=== PATIENT | male | born 1965 | race Caucasian/White ===

== ENCOUNTER 2016-12-31 20:22 | Observation (INO) | payer BC ==
[~2016-12-31] VITALS: Ht 182.9 cm; Wt 68.9 kg
[~2016-12-31 20:22] MED LIST: DICL-201 PO
[2016-12-31] MEDS ORDERED: SODIUM CHLORIDE 0.9% 1000ML 1,000 ML IV STA (20:24)
[2016-12-31] MEDS ORDERED: METHYLPREDNISOLONE 125 MG VIAL IV STA (20:36)
[2016-12-31] MEDS ORDERED: ASPI-390 PO (20:45)
[2016-12-31] MEDS ORDERED: TRAM-10 PO (20:45)
[2016-12-31] MEDS ORDERED: PANT1TAB48 PO (20:45)
--- NOTE | 2016-12-31 20:48 | DIAGNOSTIC IMAGING REPORT ---
SINGLE VIEW CHEST CLINICAL HISTORY: Fever. Sepsis. FINDINGS: An AP, portable, upright chest radiograph is compared to study dated 08/21/2015. Correlation is made with chest CT dated 01/18/2010. The examination is degraded by portable technique and patient rotation. The cardiomediastinal silhouette is unremarkable. The lungs appear hyperinflated, likely due to to good inspiratory result. The lungs and pleural spaces are clear. No pneumothorax is seen. The bony thorax is grossly intact. IMPRESSION: No acute cardiopulmonary abnormality. Electronically signed by: Erich Lazaro M.D. 12/31/2016 8:47 PM Dictated Date/Time: 12/31/2016 8:46 PM
[2016-12-31 21:04] LABS: BASO % 0.2 %; BASO ABS # 0.01 K/uL (0-0.2); COMPLETE YES; EOS % 0.2 %; HEMATOCRIT 43.9 % (42-52); IG% 0.2 %; LYMPH % 11.2 %; LYMPH ABS # 0.62 K/uL (1.2-3.4); MEAN CELL VOLUME 83.5 fL (80-100); MEAN CORPUSCULAR HEMOGLOBIN 29.8 pg (25-34); MEAN CORPUSCULAR HGB CONC 35.8 g/dl (32-36); MEAN PLATELET VOLUME 10.2 fL (7.4-10.4); MONO % 3.6 %; NEUT % 84.6 %; PLATELET COUNT 153 K/uL (130-400); RED BLOOD COUNT 5.26 M/uL (4.7-6.1); WHITE BLOOD COUNT 5.55 K/uL (4.8-10.8)
[2016-12-31 21:08] LABS: ALT/SGPT 42 U/L (12-78); BLOOD UREA NITROGEN 22 mg/dl (7-18); BUN/CREATININE RATIO 18.4 (10-20); CALCIUM 8.6 mg/dl (8.5-10.1); CARBON DIOXIDE 24 mmol/L (21-32); CHLORIDE 105 mmol/L (98-107); GLUCOSE 97 mg/dl (70-99); MAGNESIUM 2.3 mg/dl (1.8-2.4); SODIUM 139 mmol/L (136-145)
[2016-12-31 21:17] LABS: ALKALINE PHOSPHATASE 102 U/L (45-117); AST/SGOT 43 U/L (15-37); CKMB/CK RATIO 0.5 (0-3.0)
[2016-12-31 21:20] LABS: VEN BLD GAS O2 SATURATION 62.9 %
--- NOTE | 2016-12-31 21:23 | DIAGNOSTIC IMAGING REPORT ---
CT SCAN OF THE BRAIN WITHOUT IV CONTRAST CLINICAL HISTORY: Change in mental status. COMPARISON STUDY: CT of the brain dated 06/24/2007. TECHNIQUE: Unenhanced axial CT scan of the brain is performed from the vertex to the skull base. Automated dose control exposure was utilized. CT DOSE: 537.48 mGy.cm FINDINGS: Brain parenchyma: The brain parenchyma is normal in appearance. There is no hemorrhage, mass effect, or evidence of acute territorial ischemia by CT criteria. Pruett-white matter is preserved. No extra-axial fluid collection is seen. Ventricles, sulci, cisterns: Normal in configuration. Intracranial vasculature: The visualized intracranial vasculature at the skull base is normal in appearance. Calvarium: Unremarkable. Sinuses and mastoids: There is trace mucosal thickening within the ethmoid sinuses. The remaining visualized paranasal sinuses are clear. The mastoid air cells are well pneumatized. Orbits: The bony orbits are grossly intact. IMPRESSION: No acute intracranial abnormality. Electronically signed by: Erich Lazaro M.D. 12/31/2016 9:22 PM Dictated Date/Time: 12/31/2016 9:20 PM
[2016-12-31 21:26] LABS: PARTIAL THROMBOPLASTIN RATIO 1.2
[2016-12-31] MEDS ORDERED: ACETAMINOPHEN 500 MG TAB PO STA (21:53)
[2016-12-31 22:54] LABS: INFLUENZA B PCR Neg for Influ B (NEG)
[2016-12-31 22:55] LABS: INFLUENZA A PCR POS for Influ A (NEG)
[2016-12-31 23:23] LABS: MANUAL MICROSCOPIC REQUIRED? YES; URINE APPEARANCE CLEAR (CLEAR); URINE BILIRUBIN NEG (NEG); URINE COLOR YELLOW; URINE NITRITE NEG (NEG); URINE PH 5.5 (4.5-7.5); URINE SPECIFIC GRAVITY >= 1.030 (1.000-1.030); UROBILINOGEN NEG (NEG)
[2016-12-31 23:25] LABS: REVIEW REQ? NO
--- NOTE | 2016-12-31 23:34 | EMERGENCY ROOM VISIT NOTE ---
History Report prepared by Gigi: Mine Montelongo Under the Supervision of: Dr. Tyron Mcqueen D.O. First contact with patient: 20:18 Stated Complaint: UNRESPONESIVE, SILO RESCUE History of Present Illness The patient is a 51 year old male who presents to the Emergency Room via EMS to be evaluated after being found unresponsive in a silo 2.5 hours ago. The patient told EMS that he entered the silo around 1300 to clean out the silo, removing mold. The silo was almost filled. EMS was dispatched at 1753 after the patient's brother found the patient unresponsive and the patient was removed from the silo at 1948. Per EMS, the patient was coughing as they were getting him out of the silo and was then responsive. EMS went into the silo with gas measuring equipment and did not measure any unusual gases. Three days ago the patient had flu-like symptoms. Today, in the silo, he states he felt dizzy and passed out. The patient denies falling, hitting his head, that the silo was filled with unusual gases. Additionally, the patient has a history of COPD. Source of History: patient Onset: 2.5 hours ago Position: other (global) Quality: other (unresponsiveness) Timing: other (episode) Associated Symptoms: + LOC, + cough Note: Three days ago the patient had flu-like symptoms. Today, in the silo, he states he felt dizzy. The patient denies falling, hitting his head. Review of Systems See HPI for pertinent positives & negatives. A total of 10 systems reviewed and were otherwise negative. Past Medical & Surgical Medical Problems: (1) Disloc Acromioclavic-Cl (2) Inj Nos Caused By Animal (3) No Known Active Medical Problems Family History Diabetes mellitus Heart disease Lung disease Social History Smoking Status: Never Smoker Alcohol Use: none Marital Status: Housing Status: lives with family Occupation Status: employed Current/Historical Medications Scheduled [place] (Excedrin Migraine), 1 TAB PO UD Scheduled PRN Pantoprazole (Protonix), 1 TAB PO DAILY PRN for PRN Tramadol (Ultram), 1 TAB PO Q8H PRN for Pain Allergies Coded Allergies: Penicillins (Unverified Allergy, Mild, 12/31/16) Physical Exam Vital Signs Date Time Temp Pulse Resp B/P Pulse Ox O2 Delivery O2 Flow Rate FiO2 12/31/16 23:09 66 18 123/61 96 Room Air 12/31/16 21:49 87 22 138/72 98 Room Air 12/31/16 20:55 84 12/31/16 20:22 97 Room Air 12/31/16 20:22 37.7 88 17 160/80 97 Room Air Physical Exam CONSTITUTIONAL/VITAL SIGNS: Reviewed / noted above. GENERAL: Non-toxic in appearance. INTEGUMENTARY: Warm, dry, and [place]. HEAD: Normocephalic. EYES: without scleral icterus or trauma. ENT/OROPHARYNX: clear and moist. LYMPHADENOPATHY/NECK: Is supple without lymphadenopathy or meningismus. RESPIRATORY: Slightly diminished breath sounds bilaterally and occasional dry cough. CARDIOVASCULAR: Regular rate and rhythm. GI/ABDOMEN: Soft and nontender. No organomegaly or pulsatile mass. No rebound or guarding. Normal bowel sounds. EXTREMITIES: Warm and well perfused. BACK: No CVA tenderness. NEUROLOGICAL: Intact without focal deficits. PSYCHIATRIC: normal affect. MUSCULOSKELETAL: Normally developed with good muscle tone. Medical Decision & Procedures ER Provider Diagnostic Interpretation: X ray results and stated below per my interpretation and radiologist interpretation. Other radiology results and stated below per my review and radiologist interpretation: SINGLE VIEW CHEST CLINICAL HISTORY: Fever. Sepsis. FINDINGS: An AP, portable, upright chest radiograph is compared to study dated 08/21/2015. Correlation is made with chest CT dated 01/18/2010. The examination is degraded by portable technique and patient rotation. The cardiomediastinal silhouette is unremarkable. The lungs appear hyperinflated, likely due to to good inspiratory result. The lungs and pleural spaces are clear. No pneumothorax is seen. The bony thorax is grossly intact. IMPRESSION: No acute cardiopulmonary abnormality. Electronically signed by: Erich Lazaro M.D. 12/31/2016 8:47 PM Dictated Date/Time: 12/31/2016 8:[address] SCAN OF THE BRAIN WITHOUT IV CONTRAST CLINICAL HISTORY: Change in mental status. COMPARISON STUDY: CT of the brain dated 06/24/2007. TECHNIQUE: Unenhanced axial CT scan of the brain is performed from the vertex to the skull base. Automated dose control exposure was utilized. CT DOSE: 537.48 mGy.cm FINDINGS: Brain parenchyma: The brain parenchyma is normal in appearance. There is no hemorrhage, mass effect, or evidence of acute territorial ischemia by CT criteria. Pruett-white matter is preserved. No extra-axial fluid collection is seen. Ventricles, sulci, cisterns: Normal in configuration. Intracranial vasculature: The visualized intracranial vasculature at the skull base is normal in appearance. Calvarium: Unremarkable. Sinuses and mastoids: There is trace mucosal thickening within the ethmoid sinuses. The remaining visualized paranasal sinuses are clear. The mastoid air cells are well pneumatized. Orbits: The bony orbits are grossly intact. IMPRESSION: No acute intracranial abnormality. Electronically signed by: Erich Lazaro M.D. 12/31/2016 9:22 PM Dictated Date/Time: 12/31/2016 9:20 PM Laboratory Results 12/31/16 20:22 Red Blood Count 5.26, Mean Corpuscular Volume 83.5, Mean Corpuscular Hemoglobin 29.8, Mean Corpuscular Hemoglobin Concent 35.8, Mean Platelet Volume 10.2, Neutrophils (%) (Auto) 84.6, Lymphocytes (%) (Auto) 11.2, Monocytes (%) (Auto) 3.6, Eosinophils (%) (Auto) 0.2, Basophils (%) (Auto) 0.2, Neutrophils # (Auto) 4.70, Lymphocytes # (Auto) 0.62, Monocytes # (Auto) 0.20, Eosinophils # (Auto) 0.01, Basophils # (Auto) 0.01 12/31/16 20:22 Test 12/31/16 20:22 12/31/16 20:53 12/31/16 21:15 12/31/16 23:05 White Blood Count 5.55 K/uL (4.8-10.8) Red Blood Count 5.26 M/uL (4.7-6.1) Hemoglobin 15.7 g/dL (14.0-18.0) Hematocrit 43.9 % (42-52) Mean Corpuscular Volume 83.5 fL (80-100) Mean Corpuscular Hemoglobin 29.8 pg (25-34) Mean Corpuscular Hemoglobin Concent 35.8 g/dl (32-36) Platelet Count 153 K/uL (130-400) Mean Platelet Volume 10.2 fL (7.4-10.4) Neutrophils (%) (Auto) 84.6 % Lymphocytes (%) (Auto) 11.2 % Monocytes (%) (Auto) 3.6 % Eosinophils (%) (Auto) 0.2 % Basophils (%) (Auto) 0.2 % Neutrophils # (Auto) 4.70 K/uL (1.4-6.5) Lymphocytes # (Auto) 0.62 K/uL (1.2-3.4) Monocytes # (Auto) 0.20 K/uL (0.11-0.59) Eosinophils # (Auto) 0.01 K/uL (0-0.5) Basophils # (Auto) 0.01 K/uL (0-0.2) RDW Standard Deviation 37.2 fL (36.4-46.3) RDW Coefficient of Variation 12.3 % (11.5-14.5) Immature Granulocyte % (Auto) 0.2 % Immature Granulocyte # (Auto) 0.01 K/uL (0.00-0.02) Prothrombin Time 11.0 SECONDS (9.0-12.0) Activated Partial Thromboplast Time 30.8 SECONDS (21.0-31.0) Partial Thromboplastin Ratio 1.2 Anion Gap 10.0 mmol/L (3-11) Est Creatinine Clear Calc Drug Dose 73.7 ml/min Estimated GFR () 81.8 Estimated GFR (Non- 70.6 BUN/Creatinine Ratio 18.4 (10-20) Calcium Level 8.6 mg/dl (8.5-10.1) Magnesium Level 2.3 mg/dl (1.8-2.4) Total Bilirubin 0.5 mg/dl (0.2-1) Direct Bilirubin 0.1 mg/dl (0-0.2) Aspartate Amino Transf (AST/SGOT) 43 U/L (15-37) Alanine Aminotransferase (ALT/SGPT) 42 U/L (12-78) Alkaline Phosphatase 102 U/L (45-117) Total Creatine Kinase 328 U/L (39-308) Creatine Kinase MB 1.8 ng/ml (0.5-3.6) Creatine Kinase MB Ratio 0.5 (0-3.0) Troponin I < 0.015 ng/ml (0-0.045) Total Protein 7.7 gm/dl (6.4-8.2) Albumin 4.0 gm/dl (3.4-5.0) Lipase 137 U/L (73-393) Thyroid Stimulating Hormone (TSH) 1.830 uIu/ml (0.300-4.500) Acetaminophen Level < 2 ug/ml (10-30) Venous Blood pH 7.42 (7.36-7.41) Venous Blood Partial Pressure CO2 40 mmHg (38.0-50.0) Venous Blood Partial Pressure O2 33 mmHg Venous Blood HCO3 25 mmol/L Venous Blood Oxygen Saturation 62.9 % Venous Blood Base Excess 1.0 mmol/L Carboxyhemoglobin 0.0 % THgb Lactic Acid Level 1.1 mmol/L (0.4-2.0) Ethyl Alcohol mg/dL < 3.0 mg/dl (0-3) Influenza Type A (RT-PCR) POS for Influ A (NEG) Influenza Type B (RT-PCR) Neg for Influ B (NEG) Urine Color YELLOW Urine Appearance CLEAR (CLEAR) Urine pH 5.5 (4.5-7.5) Urine Specific [place] >= 1.030 (1.000-1.030) Urine Protein TRACE (NEG) Urine Glucose (UA) NEG (NEG) Urine Ketones 1+ (NEG) Urine Occult Blood TRACE (NEG) Urine Nitrite NEG (NEG) Urine Bilirubin NEG (NEG) Urine Urobilinogen NEG (NEG) Urine Leukocyte Esterase NEG (NEG) Laboratory results as stated above per my review. Medications Administered Medications (Trade) Dose Ordered Sig/Geraldine Route Start Time Stop Time Status Last Admin Dose Admin Sodium Chloride (Nss 1000ml) 1,000 ml @ 999 mls/hr Q1H1M STAT IV 12/31/16 20:24 12/31/16 21:24 DC 12/31/16 21:04 999 MLS/HR Methylprednisolone Sodium Succinate (Solu-Medrol IV) 125 mg NOW STAT IV 12/31/16 20:36 12/31/16 20:39 DC 12/31/16 21:04 125 MG Acetaminophen (Tylenol Tab) 1,000 mg NOW STAT PO 12/31/16 21:53 12/31/16 21:54 DC 12/31/16 22:02 1,000 MG ECG Indication: syncope Rate (beats per minute): 82 Rhythm: normal sinus Findings: T-wave inversion (Lateral), no ectopy Comparison ECG Date: 01/17/2013 Change: Lateral T wave inversions are new when compared to previous. ED Course 2026: Previous medical records were reviewed. The patient was evaluated in room B7. A complete history and physical examination was performed. 2023: Sodium Chloride 1000 ml @ 999 mls/hr IV 2035: Solu-Medrol 125 mg IV 2152: Tylenol Tab 1000 mg PO 2312: I discussed the case with Dr. Carlson ([facility]); she will further evaluate the patient. Medical Decision The patient is a 51 year old male who presents to the ED to be evaluated after being found unresponsive in a silo. 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 He states that he went up to around 1:30 today. He did not come home and was found by family unresponsive on the top of the silage. This was almost completely full. The patient states that he has had some flulike symptoms since Monday. He has had some coughing spells. EMS states the patient had some expiratory wheezing on initial exam. He did receive a DuoNeb treatment in route here. His lungs on my exam were relatively clear. Patient does have a nonproductive cough on exam. He is in no acute distress. EMS reports that the [employer] checked for toxic gases and the silo but none were found. The patient has no additional complaints at this time. Alcohol level is negative. Tylenol levels negative. A VBG was normal. CBC is normal. TSH was normal. Complete metabolic panel was normal other than the BUN of 22. Lactic acid was normal. Total CK was 328. Troponin is negative. A chest x-ray was negative for acute disease. A CT scan the brain was negative for acute disease. An EKG shows a sinus rhythm at a rate of 82 with some T-wave inversions laterally which appear to be new from 2013. Flu swab was positive. I spoke to Dr. Carlson about this patient. She will see the patient for further evaluation and care. Differential diagnosis: Etiologies such as vasovagal event, infection, hypoglycemia, electrolyte abnormalities, cardiac sources, intracerebral event, toxicologic, neurologic, toxic gas exposure, viral syndrome, as well as others were entertained. Consults Time Called: [phone] Consulting Physician: Dr. Carlson ([facility]) Returned Call: [phone] I discussed the case with Dr. Carlson ([facility]); she will further evaluate the patient. Impression Primary Impression: Syncope Additional Impressions: Influenza Acute electrocardiogram changes Scribe Attestation The scribe's documentation has been prepared under my direction and personally reviewed by me in its entirety. I confirm that the note above accurately reflects all work, treatment, procedures, and medical decision making performed by me. Departure Information Dispostion Being Evaluated By Hospitalist Referrals Yanelis Araujo M.D. (MEDICAL) (PCP) Problem Qualifiers
[2016-12-31] MEDS ORDERED: OSELTAMIVIR PHOSPHATE 75 MG CAP PO STA (23:37)
[2016-12-31] MEDS ORDERED: ACETAMINOPHEN 325 MG TAB PO PRN (23:45)
[2016-12-31] MEDS ORDERED: NITROGLYCERIN 0.4 MG SL PER TAB CHARGE SL PRN (23:45)
[2016-12-31] MEDS ORDERED: ONDANSETRON INJ 2 MG/ML 2 ML VIAL IV PRN (23:45)
[2016-12-31] MEDS ORDERED: MAGNESIUM HYDROXIDE SUSP 30 ML UDC PO PRN (23:45)
[2016-12-31] MEDS ORDERED: IV FLUIDS COMPLETED PRN (23:45)
[2016-12-31] MEDS ORDERED: ALUMINUM/MAGNESIUM/SIMETH (MAALOX MAX) 30 ML UDC PO PRN (23:45)
[2016-12-31] MEDS ORDERED: POLYETHYLENE (MIRALAX) 17 GM PACK PO PRN (23:45)
[2016-12-31 23:50] LABS: BENZODIAZEPINE, URINE NEG (NEG); COCAINE,URINE NEG (NEG); PHENCYCLIDINE, URINE NEG (NEG)
[2017-01-01] VITALS (7 sets, daily range): BP systolic 105–117; BP diastolic 62–75; PULSE 41–59; TEMP 36.5–36.8; O2SAT 92–97; Ht 182.9 cm; Wt 68.9 kg
[2017-01-01] MEDS ORDERED: TRAMADOL HCL 50 MG TAB PO PRN
[2017-01-01] MEDS ORDERED: PANTOprazole SOD 40 MG TAB PO PRN
[2017-01-01 00:01] LABS: URINE RBC 0-4 /hpf (0-4); URINE WBC 0 /hpf (0-5)
[2017-01-01 00:02] LABS: URINE BACTERIA NEG (NEG); URINE MUCUS PRESENT (NONE PRSENT); ZZUR CULT IF INDIC CLEAN CATCH NO
--- NOTE | 2017-01-01 00:40 | History and Physical ---
History & Physical Date & Time of Service: Jan 01, 2017 at 00:40 Chief Complaint: Syncope Primary Care Physician: Yanelis Araujo M.D. (MEDICAL) History of Present Illness Source: patient The patient is a 51 year old male with no significant past medical hx was working in [employer] approx at 1 PM family noticed around at 5 pm -pt was still not been out of [place] found him unresponsive inside , 911 was called , pt was found to be coughing while EMS was getting him out , no hypoxia EMS went into the silo with gas measuring equipment and did not measure any unusual gases. in the ED pt was awake , alert , oriented , feels tired and wiped out denies of any feeling of chest pain , SOB , Dizzy spell or headache prior to syncope does not remember how long he was unresponsive for the past 2-3 days , pt had low grade fever, non productive cough , muscle ache in the ED influenza A was positive Past Medical/Surgical History Medical Problems: (1) Disloc Acromioclavic-Cl Status: Resolved (2) Inj Nos Caused By Animal Status: Resolved (3) No Known Active Medical Problems Status: Chronic Family History Diabetes mellitus Heart disease Lung disease Social History Smoking Status: Never Smoker Marital Status: Occupational Status: employed Allergies Coded Allergies: Penicillins (Unverified Allergy, Mild, 12/31/16) Home Medications Scheduled Xicibxr-Upuzxpxqosvua-Xxhmifua (Excedrin Migraine), 1 TAB PO UD Scheduled PRN Pantoprazole (Protonix), 1 TAB PO DAILY PRN for PRN Tramadol (Ultram), 1 TAB PO Q8H PRN for Pain Review of Systems Constitutional: + chills, + fatigue, + fever Respiratory: + cough Cardiovascular: No PND, No chest pain, No claudication, No edema, No orthopnea , No palpitations, No problem reported Abdomen: No GI bleeding, No constipation, No diarrhea, No nausea, No pain, No problem reported, No vomiting Musculoskeletal: + joint pain, + muscle pain Neurologic: + numbness/tingling, + vertigo, + weakness Physical Exam Vital Signs Date Time Temp Pulse Resp B/P Pulse Ox O2 Delivery O2 Flow Rate FiO2 01/01/17 00:11 36.7 59 20 114/62 94 Room Air 12/31/16 23:50 59 18 122/59 96 12/31/16 23:09 66 18 123/61 96 Room Air 12/31/16 21:49 87 22 138/72 98 Room Air 12/31/16 20:55 84 12/31/16 20:22 97 Room Air 12/31/16 20:22 37.7 88 17 160/80 97 Room Air General Appearance: no apparent distress Head: normocephalic, atraumatic Neck: no carotid bruits, trachea midline Respiratory/Chest: chest non-tender, lungs clear, normal breath sounds Cardiovascular: regular rate, rhythm, no edema, no JVD Abdomen/GI: non tender, soft Extremities/Musculoskelatal: normal inspection, no calf tenderness, normal capillary refill, no pedal edema Neurologic/Psych: alert, normal mood/affect, oriented x 3 Skin: normal color, warm/dry, no rash Lymphatic: no adenopathy Diagnostics Laboratory Results Results Past 24 Hours Test 12/31/16 20:22 12/31/16 20:53 12/31/16 21:15 12/31/16 23:05 Range/Units White Blood Count 5.55 4.8-10.8 K/uL Red Blood Count 5.26 4.7-6.1 M/uL Hemoglobin 15.7 14.0-18.0 g/dL Hematocrit 43.9 42-52 % Mean Corpuscular Volume 83.5 80-100 fL Mean Corpuscular Hemoglobin 29.8 25-34 pg Mean Corpuscular Hemoglobin Concent 35.8 32-36 g/dl Platelet Count 153 130-400 K/uL Mean Platelet Volume 10.2 7.4-10.4 fL Neutrophils (%) (Auto) 84.6 % Lymphocytes (%) (Auto) 11.2 % Monocytes (%) (Auto) 3.6 % Eosinophils (%) (Auto) 0.2 % Basophils (%) (Auto) 0.2 % Neutrophils # (Auto) 4.70 1.4-6.5 K/uL Lymphocytes # (Auto) 0.62 1.2-3.4 K/uL Monocytes # (Auto) 0.20 0.11-0.59 K/uL Eosinophils # (Auto) 0.01 0-0.5 K/uL Basophils # (Auto) 0.01 0-0.2 K/uL RDW Standard Deviation 37.2 36.4-46.3 fL RDW Coefficient of Variation 12.3 11.5-14.5 % Immature Granulocyte % (Auto) 0.2 % Immature Granulocyte # (Auto) 0.01 0.00-0.02 K/uL Prothrombin Time 11.0 9.0-12.0 SECONDS Prothromb Time International Ratio 1.0 0.9-1.1 Activated Partial Thromboplast Time 30.8 21.0-31.0 SECONDS Partial Thromboplastin Ratio 1.2 D-Dimer 450 0-500 ug/L FEU Sodium Level 139 136-145 mmol/L Potassium Level 4.0 3.5-5.1 mmol/L Chloride Level 105 98-107 mmol/L Carbon Dioxide Level 24 21-32 mmol/L Anion Gap 10.0 3-11 mmol/L Blood Urea Nitrogen 22 7-18 mg/dl Creatinine 1.20 0.60-1.40 mg/dl Est Creatinine Clear Calc Drug Dose 73.7 ml/min Estimated GFR () 81.8 Estimated GFR (Non- 70.6 BUN/Creatinine Ratio 18.4 10-20 Random Glucose 97 70-99 mg/dl Calcium Level 8.6 8.5-10.1 mg/dl Magnesium Level 2.3 1.8-2.4 mg/dl Total Bilirubin 0.5 0.2-1 mg/dl Direct Bilirubin 0.1 0-0.2 mg/dl Aspartate Amino Transf (AST/SGOT) 43 15-37 U/L Alanine Aminotransferase (ALT/SGPT) 42 12-78 U/L Alkaline Phosphatase 102 45-117 U/L Total Creatine Kinase 328 39-308 U/L Creatine Kinase MB 1.8 0.5-3.6 ng/ml Creatine Kinase MB Ratio 0.5 0-3.0 Troponin I < 0.015 0-0.045 ng/ml Total Protein 7.7 6.4-8.2 gm/dl Albumin 4.0 3.4-5.0 gm/dl Lipase 137 73-393 U/L Thyroid Stimulating Hormone (TSH) 1.830 0.300-4.500 uIu/ml Acetaminophen Level < 2 10-30 ug/ml Venous Blood pH 7.42 7.36-7.41 Venous Blood Partial Pressure CO2 40 38.0-50.0 mmHg Venous Blood Partial Pressure O2 33 mmHg Venous Blood HCO3 25 mmol/L Venous Blood Oxygen Saturation 62.9 % Venous Blood Base Excess 1.0 mmol/L Carboxyhemoglobin 0.0 % TH Lactic Acid Level 1.1 0.4-2.0 mmol/L Ethyl Alcohol mg/dL < 3.0 0-3 mg/dl Influenza Type A (RT-PCR) POS for Influ A NEG Influenza Type B (RT-PCR) Neg for Influ B NEG Urine Color YELLOW Urine Appearance CLEAR CLEAR Urine pH 5.5 4.5-7.5 Urine Specific [place] >= 1.030 1.000-1.030 Urine Protein TRACE NEG Urine Glucose (UA) NEG NEG Urine Ketones 1+ NEG Urine Occult Blood TRACE NEG Urine Nitrite NEG NEG Urine Bilirubin NEG NEG Urine Urobilinogen NEG NEG Urine Leukocyte Esterase NEG NEG Urine RBC 0-4 0-4 /hpf Urine WBC 0 0-5 /hpf Urine Epithelial Cells 0-5 0-5 /lpf Urine Bacteria NEG NEG Urine Mucus PRESENT NONE PRSENT Urine Opiates Screen NEG NEG Urine Methadone, Qualitative NEG NEG Urine Barbiturates NEG NEG Urine Phencyclidine (PCP) Level NEG NEG Ur Amphetamine/Methamphetamine NEG NEG MDMA (Ecstasy) Screen NEG NEG Urine Benzodiazepines Screen NEG NEG Urine Cocaine Metabolite NEG NEG Urine Marijuana (THC) NEG NEG Diagnostic Radiology CHEST XRAY SINGLE VIEW CHEST CLINICAL HISTORY: Fever. Sepsis. FINDINGS: An AP, portable, upright chest radiograph is compared to study dated 08/21/2015. Correlation is made with chest CT dated 01/18/2010. The examination is degraded by portable technique and patient rotation. The cardiomediastinal silhouette is unremarkable. The lungs appear hyperinflated, likely due to to good inspiratory result. The lungs and pleural spaces are clear. No pneumothorax is seen. The bony thorax is grossly intact. IMPRESSION: No acute cardiopulmonary abnormality. Electronically signed by: Erich Lazaro M.D. 12/31/2016 8:47 PM Dictated Date/Time: 12/31/2016 8:[address] SCAN OF THE BRAIN WITHOUT IV CONTRAST CLINICAL HISTORY: Change in mental status. COMPARISON STUDY: CT of the brain dated 06/24/2007. TECHNIQUE: Unenhanced axial CT scan of the brain is performed from the vertex to the skull base. Automated dose control exposure was utilized. CT DOSE: 537.48 mGy.cm FINDINGS: Brain parenchyma: The brain parenchyma is normal in appearance. There is no hemorrhage, mass effect, or evidence of acute territorial ischemia by CT criteria. Pruett-white matter is preserved. No extra-axial fluid collection is seen. Ventricles, sulci, cisterns: Normal in configuration. Intracranial vasculature: The visualized intracranial vasculature at the skull base is normal in appearance. Calvarium: Unremarkable. Sinuses and mastoids: There is trace mucosal thickening within the ethmoid sinuses. The remaining visualized paranasal sinuses are clear. The mastoid air cells are well pneumatized. Orbits: The bony orbits are grossly intact. IMPRESSION: No acute intracranial abnormality. Impression Assessment and Plan SYNCOPE : not sure of the etiology no neurological deficit pt was found unresponsive in [place] Carboxyhemoglobin -negative no evidence of hypoxia or respiratory y compromise D Dimer negative CT head negative for CVA possible syncope due to dehydration /Influenza A ? IV fluid ordered , check orthostatic vitals rule out cardiac arrhythmia/ACS Observation in Telemetry serial cardiac markers ECHO to asses LV function /valvular pathology Carotid Doppler r/O carotid stenosis MILD ELEVATION OF CPK possible due to fall IV fluids follow serial level INFLUENZA A IV fluid , supportive care started on Tamiflu 75 mg PO BID X 5 days Droplet precaution EKG CHANGED FULL CODE DVT PROPHYLAXIS : low risk active at baseline SCD and teds ambulate DISPOSITION : Discharge home when medically stable Medicine follow up with Dr Araujo at [facility] Level of Care Med/Surg Advanced Directives Existing Living Will: No Existing Power of Foreign Service Teacher: No Resuscitation Status FULL RESUSCITATION VTE Prophylaxis VTE Risk Assessment Done? Y/N: Yes Risk Level: Moderate Given or contraindicated: T.[place]coe Stockings, SCD's Additional Copies To Yanelis Araujo M.D. (MEDICAL)
[2017-01-01] MEDS: SODIUM CHLORIDE 0.9% 1000ML 1,000 ML IV SCH ×2 (01:17→09:35)
[2017-01-01] MEDS ORDERED: HEPARIN SOD 5000 UNIT/0.5 ML CARP SQ SCH (06:00)
[2017-01-01 06:42] LABS: HEMATOCRIT 37.9 % (42-52); MEAN CELL VOLUME 85.2 fL (80-100); MEAN CORPUSCULAR HEMOGLOBIN 29.4 pg (25-34); MEAN CORPUSCULAR HGB CONC 34.6 g/dl (32-36); MEAN PLATELET VOLUME 9.9 fL (7.4-10.4); PLATELET COUNT 115 K/uL (130-400); RED BLOOD COUNT 4.45 M/uL (4.7-6.1); WHITE BLOOD COUNT 2.93 K/uL (4.8-10.8)
[2017-01-01 07:15] LABS: BLOOD UREA NITROGEN 21 mg/dl (7-18); BUN/CREATININE RATIO 20.9 (10-20); CARBON DIOXIDE 23 mmol/L (21-32); CHLORIDE 107 mmol/L (98-107); CHOLESTEROL 113 mg/dl (0-200); CREATININE 0.99 mg/dl (0.60-1.40); GLUCOSE 178 mg/dl (70-99); MAGNESIUM 2.4 mg/dl (1.8-2.4); POTASSIUM 4.3 mmol/L (3.5-5.1); SODIUM 141 mmol/L (136-145)
[2017-01-01 07:20] LABS: CHOLESTEROL/HDL RATIO 2.7; CKMB/CK RATIO 0.6 (0-3.0); HDL CHOLESTEROL 42 mg/dl; LDL CHOLESTEROL CALCULATED 63 mg/dl; TRIGLYCERIDES 40 mg/dl (0-150); VERY LOW DENSITY LIPOPROT CALC 8 mg/dl
[2017-01-01] MEDS: ASPIRIN 81 MG ECTAB PO SCH (08:09)
[2017-01-01] MEDS: OSELTAMIVIR PHOSPHATE 75 MG CAP PO SCH ×2 (08:09→20:22)
--- NOTE | 2017-01-01 08:47 | ECHOCARDIOGRAM REPORT ---
*NOTICE TO RECEIVING DEMOCRAT AGENCY This information is strictly Confidential and protected under [place] law. [place] law prohibits you from making any further disclosure of this information unless further disclosure is expressly permitted by the written consent of the person to whom it pertains or is authorized by law. A general authorization for the release of medical or other information is not sufficient for this purpose. Hospital accepts no responsibility if the information is made available to any other person, INCLUDING THE PATIENT. Interpretation Summary * Name: JEFF SIMON Study Date: 01/01/2017 06:44 AM BP: 105/62 mmHg * Patient Location: [facility] HR: 46 * : 1965 (M/d/yyyy) Gender: Male Height: 72 in * Age: 51 yrs Ethnicity: [place] Weight: 154 lb * Ordering Physician: Suellen Carlson * Performed By: Ena Delgadillo RDCS * * Reason For Study: Chest pain * BSA: 1.9 m2 * -- Conclusions -- * The left ventricle is normal in size. * Left ventricular systolic function is normal. * Ejection Fraction = 65-70%. * The left ventricular wall motion is normal. * The right ventricular systolic function is normal. * The left atrial size is normal. * Right atrial size is normal. * No significant valvular pathology. Procedure Details * A complete two-dimensional transthoracic echocardiogram was performed (2D, M-mode, Doppler and color flow Doppler). Left Ventricle * The left ventricle is normal in size. * There is normal left ventricular wall thickness. * Ejection Fraction = 65-70%. * Left ventricular systolic function is normal. * The left ventricular wall motion is normal. Right Ventricle * The right ventricle is normal in size and function. * There is normal right ventricular wall thickness. * The right ventricular systolic function is normal. Atria * The left atrial size is normal. * Right atrial size is normal. * The interatrial septum is intact with no evidence for an atrial septal defect. Mitral Valve * The mitral valve leaflets appear thickened, but open well. * There is no mitral valve stenosis. * There is mild mitral regurgitation. Tricuspid Valve * Tricuspid leaflets are thickened. * There is trace tricuspid regurgitation. Aortic Valve * The aortic valve is not well visualized. * No hemodynamically significant valvular aortic stenosis. * No aortic regurgitation is present. Pulmonic Valve * The pulmonic valve is normal in structure and function. * There is no pulmonic valvular regurgitation. Great Vessels * The aortic root is normal size. * No obvious dissection could be visualized. * The pulmonary artery is normal size. Pericardium/Pleural * There is no pericardial effusion. MMode 2D Measurements and Calculations IVSd 0.62 cm LVIDd 4.2 cm LVIDs 2.9 cm LVPWd 1.0 cm IVS/LVPW 0.61 FS 30.9 % EDV(Teich) 78.3 ml ESV(Teich) 32.1 ml EF(Teich) 58.9 % EDV(cubed) 73.7 ml ESV(cubed) 24.3 ml EF(cubed) 67.0 % LV mass(C)d 103.4 grams LV mass(C)dI 54.2 grams/m\S\2 CO(Teich) 1.9 l/min CI(Teich) 1.0 l/min/m\S\2 SV(Teich) 46.1 ml SI(Teich) 24.2 ml/m\S\2 CO(cubed) 2.1 l/min CI(cubed) 1.1 l/min/m\S\2 SV(cubed) 49.4 ml SI(cubed) 25.9 ml/m\S\2 ACS 1.4 cm LA dimension 2.2 cm LVAd ap4 30.6 cm\S\2 LVLd ap4 8.7 cm EDV(MOD-sp4) 87.1 ml LVAs ap4 12.9 cm\S\2 LVLs ap4 6.4 cm ESV(MOD-sp4) 24.0 ml EF(MOD-sp4) 72.4 % LVAd ap2 31.8 cm\S\2 LVLd ap2 8.6 cm EDV(MOD-sp2) 98.2 ml LVAs ap2 15.5 cm\S\2 LVLs ap2 7.2 cm ESV(MOD-sp2) 27.8 ml EF(MOD-sp2) 71.7 % CO(MOD-sp4) 2.7 l/min CI(MOD-sp4) 1.4 l/min/m\S\2 SV(MOD-sp4) 63.1 ml SI(MOD-sp4) 33.1 ml/m\S\2 CO(MOD-sp2) 3.0 l/min CI(MOD-sp2) 1.6 l/min/m\S\2 SV(MOD-sp2) 70.4 ml SI(MOD-sp2) 36.9 ml/m\S\2 Doppler Measurements and Calculations MV E max eusebia 96.0 cm/sec MV A max eusebia 46.1 cm/sec MV E/A 2.1 MV dec time 0.39 sec Ao V2 max 145.9 cm/sec Ao max PG 8.5 mmHg Ao max PG (full) 1.6 mmHg LV V1 max PG 7.0 mmHg LV V1 max 131.9 cm/sec PA V2 max 104.2 cm/sec PA max PG 4.3 mmHg PA acc slope 434.5 cm/sec\S\2 PA acc time 0.18 sec TR max eusebia 200.2 cm/sec PA pr(Accel) -3.39 mmHg
--- NOTE | 2017-01-01 12:38 | DIAGNOSTIC IMAGING REPORT ---
CAROTID ARTERY ULTRASOUND CLINICAL HISTORY: Syncope. Evaluate for carotid stenosis. COMPARISON STUDY: None. TECHNIQUE: Real-time, grayscale, and color Doppler sonography of the carotid and vertebral arteries was performed. Images were viewed in the transverse and longitudinal planes. FINDINGS: There is minimal atherosclerotic plaque. Velocity measurements are listed below. COMMON CAROTID PEAK SYSTOLIC VELOCITY (CM/S): RIGHT 150 LEFT 186 ICA PEAK SYSTOLIC VELOCITY (CM/S): RIGHT 95 LEFT 78 The systolic ratios between the internal to common carotid arteries were normal. Antegrade flow is seen in the vertebral arteries. The external carotid arteries are patent. Blood pressure in the right arm measured 113/62. Blood pressure in the left arm measured 112/61. IMPRESSION: No evidence of a hemodynamically significant stenosis. Electronically signed by: Tank Wylie M.D. 01/01/2017 12:36 PM Dictated Date/Time: 01/01/2017 12:30 PM
[2017-01-01 14:01] LABS: COMPLETE YES; HEMATOCRIT 37.8 % (42-52); LYMPH % 13.2 %; MEAN CELL VOLUME 85.3 fL (80-100); MEAN CORPUSCULAR HEMOGLOBIN 29.3 pg (25-34); MEAN CORPUSCULAR HGB CONC 34.4 g/dl (32-36); MEAN PLATELET VOLUME 9.8 fL (7.4-10.4); MONO % 6.3 %; NEUT % 80.5 %; PLATELET COUNT 109 K/uL (130-400); RED BLOOD COUNT 4.43 M/uL (4.7-6.1); WHITE BLOOD COUNT 3.02 K/uL (4.8-10.8)
[2017-01-01 14:23] LABS: CKMB/CK RATIO 0.8 (0-3.0)
--- NOTE | 2017-01-01 15:02 | CARDIOLOGY CONSULTATION ---
DATE OF CONSULTATION: 01/01/2017 Consultation for the [facility] hospitalist. REASON FOR CONSULTATION: Syncope. HISTORY OF PRESENT ILLNESS: This is a 51-year-old male patient with no prior history of heart disease. He has been feeling poorly for several days with cold like symptoms. 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 He was brought out of the silo by EMS. They did not suspect any carbon monoxide or other gases at the time of his extraction. After arrival to the Emergency Department, he was found to be influenza A positive. He has been given IV fluids and is feeling better. After admission, he has been noted to be in sinus bradycardia, however on questioning the patient, he states that he always has a slow heart rate. He has been told on multiple occasions including at his primary care physician's office that he has a slow heart rate. He has never had syncope. He denies recent dizziness or lightheadedness. He has no prior history of heart disease. After admission, his cardiac markers were negative. His TSH level is within normal limits. The only significant finding is that his CBC this morning indicates pancytopenia. This may be viral in origin; however, the labs should be repeated with a differential. ALLERGIES: PENICILLIN. PAST MEDICAL HISTORY: The patient has minimal past medical history. No prior history of hypertension, diabetes, kidney disease, seizure disorder, syncope or ischemic heart disease. FAMILY MEDICAL HISTORY: Significant for diabetes. SOCIAL HISTORY: The patient is a lifelong nonsmoker. He is . REVIEW OF SYSTEMS: A 10-point review of systems is negative except for the history of chief complaint. PHYSICAL EXAMINATION: GENERAL: He is alert and oriented. VITAL SIGNS: Blood pressure is 115/70, pulse is regular at 50 beats per minute. He is in sinus bradycardia on the telemetry. HEENT: He is normocephalic. Pupils are equal and reactive to light. Extraocular muscles are intact bilaterally. NECK: The neck veins are flat. Carotids have good upstrokes bilaterally without bruits. Thyroid is nonpalpable. RESPIRATORY: Breath sounds equal bilaterally and clear to auscultation. CARDIOVASCULAR: Heart has a regular rhythm. Normal S1, S2. No S3, S4. No cardiac rubs or murmurs. GASTROINTESTINAL: Abdomen is soft, nontender without organomegaly. EXTREMITIES: Free of edema, digital clubbing, or cyanosis. NEUROLOGIC: Grossly intact. SKIN: Warm to touch. LYMPH NODES: Negative to palpation. LABORATORY DATA: Per the history of chief complaint. IMPRESSION: 1. Syncope, which is most likely due to a viral illness and dehydration. 2. Influenza A. 3. Pancytopenia. RECOMMENDATIONS: I do not believe at this time any additional cardiac testing is indicated. He does have a slow heart rate but this may be due to an athletic heart. He does have a slow heart rate by history at least, that is according to the patient. I would recommend continued IV hydration and treatment of his influenza. I will repeat the CBC with differential.
[2017-01-02] MEDS: SODIUM CHLORIDE 0.9% 1000ML 1,000 ML IV SCH (01:01)
[2017-01-02 03:38] VITALS: BP 109/66; PULSE 43; TEMP 36.7; O2SAT 97
[2017-01-02 07:06] LABS: BUN/CREATININE RATIO 22.3 (10-20); CALCIUM 7.9 mg/dl (8.5-10.1); CREATININE 0.86 mg/dl (0.60-1.40); MAGNESIUM 2.3 mg/dl (1.8-2.4); POTASSIUM 4.4 mmol/L (3.5-5.1)
[2017-01-02] MEDS: OSELTAMIVIR PHOSPHATE 75 MG CAP PO SCH (07:41)
[2017-01-02] MEDS: ASPIRIN 81 MG ECTAB PO SCH (07:41)
[2017-01-02 07:49] VITALS: BP 111/70; PULSE 40; TEMP 36.6; O2SAT 96
--- NOTE | 2017-01-02 09:03 | Cardiology Follow-Up ---
Subjective General Date of Service: Jan 02, 2017. Chief Complaint: syncope Pt evaluation today including: conversation w/ patient, conversation w/ family , physical exam, chart review, lab review, review of studies, review of inpatient medication list History of Present Illness Patient states he is feeling better. Wants to go home. \\ Notes ongoing cough. No fever or chills. Denies chest pain, SOB, dizziness, syncope or near syncope. States he has a long history of low HR. No history of syncope or near syncope in the past. No recent dizziness. Does not recall events leading to syncope. States he "overworked himself" and was sick. He had nothing to eat/drink all day prior to event. Allergies Coded Allergies: Penicillins (Unverified Allergy, Mild, 12/31/16) Social History Smoking Status: Never Smoker Hx Alcohol Use - Type And Amou: No Hx Substance Use - Type And Am: No Problem List Medical Problems: (1) Acute electrocardiogram changes Status: Acute (2) Influenza Status: Acute Review of Systems Respiratory: No cough, No dyspnea at rest, No hemoptysis, No shortness of breath, No sputum, No wheezing Cardiac: No PND, No chest pain, No edema, No orthopnea, No palpitations Physical Exam Vital Signs Last Vital Signs Documentation Date Time Temp Pulse Resp B/P Pulse Ox O2 Delivery O2 Flow Rate FiO2 01/02/17 07:49 36.6 40 16 111/70 96 Room Air Physical Exam Constitutional: General Apperance: heathly-appearing Level of Distress: NAD Ambulation: ambulating normally Psychiatric: Mental Status: active & alert Orientation: to time, to place, to person Head: normocephalic Eyes: Pupils: PERRLA Neck: supple Lungs: Respiratory effort: no dyspnea Auscultation: no rales/crackles, rhonchi Cardiovascular: Heart Auscultation: RRR, normal S1, normal S2, no murmurs Abdomen: Bowel Sounds: normal Inspection & Palpation: soft, non-distended Extremities: no edema Assessment and Plan Assessment and Plan IMPRESSION: 1. Syncope, which is most likely due to a viral illness and dehydration. 2. Sinus bradycardia - asymptomatic 3. Influenza A. 4. Pancytopenia. 5. Abnormal EKG - early repolarization, also noted since 2011. RECOMMENDATIONS: Lowest HR recorded was approx 33 yesterday while awake. No symptoms reported. He does have a long standing history of sinus bradycardia according to prior EKGs, dating back to 2011 ranging 40-60 bpm. No history of syncope prior to this event. Will arrange for outpatient 2 week Zio monitor to be placed for further evaluation and r/o significant sinus arrest/pauses. Normal Echo Stable cardiac signs/symptoms. [facility] Cardio office will call to arrange Zio. Case discussed with Dr. Uriarte. CARDIOLOGY ATTENDING ADDENDUM: The patient was seen and personally examined. Agree with Bettie Kemp PA-C's findings and plans as documented above. I agree the patient may be D/C with outpatient follow-up and an event monitor. Laboratory Results Last 24 Hours Test 01/01/17 13:40 01/02/17 05:51 White Blood Count 3.02 K/uL Red Blood Count 4.43 M/uL Hemoglobin 13.0 g/dL Hematocrit 37.8 % Mean Corpuscular Volume 85.3 fL Mean Corpuscular Hemoglobin 29.3 pg Mean Corpuscular Hemoglobin Concent 34.4 g/dl Platelet Count 109 K/uL Mean Platelet Volume 9.8 fL Neutrophils (%) (Auto) 80.5 % Lymphocytes (%) (Auto) 13.2 % Monocytes (%) (Auto) 6.3 % Eosinophils (%) (Auto) 0.0 % Basophils (%) (Auto) 0.0 % Neutrophils # (Auto) 2.43 K/uL Lymphocytes # (Auto) 0.40 K/uL Monocytes # (Auto) 0.19 K/uL Eosinophils # (Auto) 0.00 K/uL Basophils # (Auto) 0.00 K/uL RDW Standard Deviation 39.2 fL RDW Coefficient of Variation 12.5 % Immature Granulocyte % (Auto) 0.0 % Immature Granulocyte # (Auto) 0.00 K/uL Total Creatine Kinase 273 U/L Creatine Kinase MB 2.2 ng/ml Creatine Kinase MB Ratio 0.8 Troponin I < 0.015 ng/ml Sodium Level 142 mmol/L Potassium Level 4.4 mmol/L Chloride Level 109 mmol/L Carbon Dioxide Level 26 mmol/L Anion Gap 7.0 mmol/L Blood Urea Nitrogen 19 mg/dl Creatinine 0.86 mg/dl Est Creatinine Clear Calc Drug Dose 101.3 ml/min Estimated GFR () 118.0 Estimated GFR (Non- 101.8 BUN/Creatinine Ratio 22.3 Random Glucose 95 mg/dl Calcium Level 7.9 mg/dl Magnesium Level 2.3 mg/dl
--- NOTE | 2017-01-02 10:39 | Progress Note ---
Internal Med Progress Note Date of Service: Jan 02, 2017. Provider Documentation: SUBJECTIVE: The patient was seen and examined Generally weak and lethargic Has had Bradycardia ~35 last evening without any symptoms Has minimal cough OBJECTIVE: Vital Signs-as noted below Exam: General-No distress at rest Eyes-normal ENT-normal Neck-supple Lungs-Clear to ausucltate bilaterally No Crackles Heart-Regular,no murmur Abdomen-Benign,no masses,bowel sound present Extremities-No edema Neuro-AAOx3 Lab data as noted below. ASSESSMENT & PLAN: SYNCOPE : -pt was found unresponsive in [place] -AAOX3 in ER -Carboxyhemoglobin -negative ,Tox screen negative,No hypoxia -Likely secondary to dehydration complicated by Flue -CT head negative for CVA -IV fluid ordered , check orthostatic vitals -doubt any cardiac arrhythmia/ACS -serial cardiac markers -negative for any ACS -ECHO :: * The left ventricle is normal in size. * Left ventricular systolic function is normal. * Ejection Fraction = 65-70%. * The left ventricular wall motion is normal. * The right ventricular systolic function is normal. * The left atrial size is normal. * Right atrial size is normal. * No significant valvular pathology. -Carotid Doppler :No evidence of a hemodynamically significant stenosis -Appreciate cardiology input -Likely to be discharged today Bradyarrhythmia -Significant ~35 -No symptoms -Chronic in nature -Will get OP Holter INFLUENZA- A IV fluid , supportive care started on Tamiflu 75 mg PO BID X 5 days Droplet precaution No acute respiratory symptoms Check CXR to R/O any Pneumonia MILD ELEVATION OF CPK possible due to fall IV fluids follow serial level -trending down Remains tsable FULL CODE DVT PROPHYLAXIS : low risk active at baseline SCD and teds ambulate DISPOSITION : Discharge home when medically stable Medicine follow up with Dr Araujo at [facility] clinic Discharge today Vital Signs: Date Time Temp Pulse Resp B/P Pulse Ox O2 Delivery O2 Flow Rate FiO2 01/02/17 08:00 Room Air 01/02/17 07:49 36.6 40 16 111/70 96 Room Air 01/02/17 04:05 Room Air 01/02/17 03:38 36.7 43 18 109/66 97 Room Air 01/02/17 00:02 Room Air 01/01/17 23:56 36.6 42 18 114/66 95 Room Air 01/01/17 20:27 36.8 43 18 117/75 97 Room Air 01/01/17 20:01 Room Air 01/01/17 15:44 Room Air 01/01/17 15:40 36.7 44 18 113/67 96 Room Air 01/01/17 12:50 36.5 41 18 112/66 96 Room Air 01/01/17 12:00 Room Air Lab Results: Results Past 24 Hours Test 01/01/17 13:40 01/02/17 05:51 Range/Units White Blood Count 3.02 4.8-10.8 K/uL Red Blood Count 4.43 4.7-6.1 M/uL Hemoglobin 13.0 14.0-18.0 g/dL Hematocrit 37.8 42-52 % Mean Corpuscular Volume 85.3 80-100 fL Mean Corpuscular Hemoglobin 29.3 25-34 pg Mean Corpuscular Hemoglobin Concent 34.4 32-36 g/dl Platelet Count 109 130-400 K/uL Mean Platelet Volume 9.8 7.4-10.4 fL Neutrophils (%) (Auto) 80.5 % Lymphocytes (%) (Auto) 13.2 % Monocytes (%) (Auto) 6.3 % Eosinophils (%) (Auto) 0.0 % Basophils (%) (Auto) 0.0 % Neutrophils # (Auto) 2.43 1.4-6.5 K/uL Lymphocytes # (Auto) 0.40 1.2-3.4 K/uL Monocytes # (Auto) 0.19 0.11-0.59 K/uL Eosinophils # (Auto) 0.00 0-0.5 K/uL Basophils # (Auto) 0.00 0-0.2 K/uL RDW Standard Deviation 39.2 36.4-46.3 fL RDW Coefficient of Variation 12.5 11.5-14.5 % Immature Granulocyte % (Auto) 0.0 % Immature Granulocyte # (Auto) 0.00 0.00-0.02 K/uL Total Creatine Kinase 273 39-308 U/L Creatine Kinase MB 2.2 0.5-3.6 ng/ml Creatine Kinase MB Ratio 0.8 0-3.0 Troponin I < 0.015 0-0.045 ng/ml Sodium Level 142 136-145 mmol/L Potassium Level 4.4 3.5-5.1 mmol/L Chloride Level 109 98-107 mmol/L Carbon Dioxide Level 26 21-32 mmol/L Anion Gap 7.0 3-11 mmol/L Blood Urea Nitrogen 19 7-18 mg/dl Creatinine 0.86 0.60-1.40 mg/dl Est Creatinine Clear Calc Drug Dose 101.3 ml/min Estimated GFR () 118.0 Estimated GFR (Non- 101.8 BUN/Creatinine Ratio 22.3 10-20 Random Glucose 95 70-99 mg/dl Calcium Level 7.9 8.5-10.1 mg/dl Magnesium Level 2.3 1.8-2.4 mg/dl
[2017-01-02 11:36] VITALS: BP 119/79; PULSE 40; TEMP 36.7; O2SAT 98
[2017-01-02] MEDS ORDERED: GUAISYP5 PO (14:35)
[2017-01-02] MEDS ORDERED: TMF75 PO (14:35)
[2017-01-02] MEDS ORDERED: ASPEC81 PO (14:35)
--- NOTE | 2017-01-02 14:38 | Discharge Instructions ---
Discharge Instructions Admission Reason for Admission: Syncope Discharge Discharge Diagnosis / Problem: Syncope -Go aparent cause identified,Flu Discharge Goals Goal(s): Prevent Disease Progression Activity Recommendations Activity Limitations: resume your previous activity . Instructions / Follow-Up Instructions / Follow-Up DR Araujo on 01/06/17 at 12:10 PM.Cardiology will call with instruction Current Hospital Diet Patient's current hospital diet: AHA Diet (Heart Healthy) Discharge Diet Recommended Diet: AHA Diet (Heart Healthy) Pending Studies Studies pending at discharge: no Laboratory Results Lipid Panel Test 01/01/17 06:00 Range/Units Triglycerides Level 40 0-150 mg/dl Cholesterol Level 113 0-200 mg/dl HDL Cholesterol 42 mg/dl Cholesterol/HDL Ratio 2.7 LDL Cholesterol, Calculated 63 mg/dl Medical Emergencies . Who to Call and When: Medical Emergencies: If at any time you feel your situation is an emergency, please call 911 immediately. . Non-Emergent Contact Non-Emergency issues call your: Primary Care Provider . Past History Medical & Surgical History: (1) Syncope (2) Abdominal pain . "Provider Documentation" section prepared by Ness Salmon. VTE Core Measure Inpt VTE Proph given/why not?: Debbie Conklin, SCD's
[2017-01-02 15:15] VITALS: BP 119/79; PULSE 40; TEMP 36.7; O2SAT 98
--- NOTE | 2017-01-03 09:18 | Discharge Summary ---
Discharge Summary Admission Date: Dec 31, 2016 at 23:36 Discharge Date: Jan 02, 2017 Discharge Disposition: Home Principal Diagnosis: Syncope -No apparent cause identified,Flu,Bradycardia Secondary Diagnoses/Problems: Please see H&P Consultations: Cardiology Medication Reconciliation New Medications: Guaifenesin-Codeine (Robitussin-Ac Syrup) 1 Syp Syp 5 ML PO Q4H PRN for Cough for 8 Days, #240 ML Aspirin (Aspirin EC Low Dose) 81 Mg Ectab 81 MG PO QAM for 30 Days, #30 Oseltamivir Phosphate (Tamiflu) 75 Mg Cap 75 MG PO BID for 3 Days, #6 CAP Continued Medications: Hrufkrv-Tnyqlogykswlq-Lfckxrwa (Excedrin Migraine) 1 Tab Tab 1 TAB PO UD Pantoprazole (Protonix) Unknown Strength Tab 1 TAB PO DAILY PRN for PRN Tramadol (Ultram) Unknown Strength Tab 1 TAB PO Q8H PRN for Pain Admission Information HPI (per Admitting provider): The patient is a 51 year old male with no significant past medical hx was working in [employer] approx at 1 PM family noticed around at 5 pm -pt was still not been out of [place] found him unresponsive inside , 911 was called , pt was found to be coughing while EMS was getting him out , no hypoxia EMS went into the [place] with gas measuring equipment and did not measure any unusual gases. in the ED pt was awake , alert , oriented , feels tired and wiped out denies of any feeling of chest pain , SOB , Dizzy spell or headache prior to syncope does not remember how long he was unresponsive for the past 2-3 days , pt had low grade fever, non productive cough , muscle ache in the ED influenza A was positive Past Medical/Surgical History Medical Problems: (1) Disloc Acromioclavic-Cl Status: Resolved (2) Inj Nos Caused By Animal Status: Resolved (3) No Known Active Medical Problems Status: Chronic Family History Diabetes mellitus Heart disease Lung disease Social History Smoking Status: Never Smoker Marital Status: Occupational Status: employed Allergies Coded Allergies: Penicillins (Unverified Allergy, Mild, 12/31/16) Home Medications Scheduled Oyhcjxw-Oxrqrbtkgqisb-Zmybshrp (Excedrin Migraine), 1 TAB PO UD Scheduled PRN Pantoprazole (Protonix), 1 TAB PO DAILY PRN for PRN Tramadol (Ultram), 1 TAB PO Q8H PRN for Pain Review of Systems Constitutional: + chills, + fatigue, + fever Respiratory: + cough Cardiovascular: No PND, No chest pain, No claudication, No edema, No orthopnea , No palpitations, No problem reported Abdomen: No GI bleeding, No constipation, No diarrhea, No nausea, No pain, No problem reported, No vomiting Musculoskeletal: + joint pain, + muscle pain Neurologic: + numbness/tingling, + vertigo, + weakness Physical Exam Vital Signs Date Time Temp Pulse Resp B/P Pulse Ox O2 Delivery O2 Flow Rate FiO2 01/01/17 00:11 36.7 59 20 114/62 94 Room Air 12/31/16 23:50 59 18 122/59 96 12/31/16 23:09 66 18 123/61 96 Room Air 12/31/16 21:49 87 22 138/72 98 Room Air 12/31/16 20:55 84 12/31/16 20:22 97 Room Air 12/31/16 20:22 37.7 88 17 160/80 97 Room Air General Appearance: no apparent distress Head: normocephalic, atraumatic Neck: no carotid bruits, trachea midline Respiratory/Chest: chest non-tender, lungs clear, normal breath sounds Cardiovascular: regular rate, rhythm, no edema, no JVD Abdomen/GI: non tender, soft Extremities/Musculoskelatal: normal inspection, no calf tenderness, normal capillary refill, no pedal edema Neurologic/Psych: alert, normal mood/affect, oriented x 3 Skin: normal color, warm/dry, no rash Lymphatic: no adenopathy Diagnostics Laboratory Results Results Past 24 Hours Test 12/31/16 20:22 12/31/16 20:53 12/31/16 21:15 12/31/16 23:05 Range/Units White Blood Count 5.55 4.8-10.8 K/uL Red Blood Count 5.26 4.7-6.1 M/uL Hemoglobin 15.7 14.0-18.0 g/dL Hematocrit 43.9 42-52 % Mean Corpuscular Volume 83.5 80-100 fL Mean Corpuscular Hemoglobin 29.8 25-34 pg Mean Corpuscular Hemoglobin Concent 35.8 32-36 g/dl Platelet Count 153 130-400 K/uL Mean Platelet Volume 10.2 7.4-10.4 fL Neutrophils (%) (Auto) 84.6 % Lymphocytes (%) (Auto) 11.2 % Monocytes (%) (Auto) 3.6 % Eosinophils (%) (Auto) 0.2 % Basophils (%) (Auto) 0.2 % Neutrophils # (Auto) 4.70 1.4-6.5 K/uL Lymphocytes # (Auto) 0.62 1.2-3.4 K/uL Monocytes # (Auto) 0.20 0.11-0.59 K/uL Eosinophils # (Auto) 0.01 0-0.5 K/uL Basophils # (Auto) 0.01 0-0.2 K/uL RDW Standard Deviation 37.2 36.4-46.3 fL RDW Coefficient of Variation 12.3 11.5-14.5 % Immature Granulocyte % (Auto) 0.2 % Immature Granulocyte # (Auto) 0.01 0.00-0.02 K/uL Prothrombin Time 11.0 9.0-12.0 SECONDS Prothromb Time International Ratio 1.0 0.9-1.1 Activated Partial Thromboplast Time 30.8 21.0-31.0 SECONDS Partial Thromboplastin Ratio 1.2 D-Dimer 450 0-500 ug/L FEU Sodium Level 139 136-145 mmol/L Potassium Level 4.0 3.5-5.1 mmol/L Chloride Level 105 98-107 mmol/L Carbon Dioxide Level 24 21-32 mmol/L Anion Gap 10.0 3-11 mmol/L Blood Urea Nitrogen 22 7-18 mg/dl Creatinine 1.20 0.60-1.40 mg/dl Est Creatinine Clear Calc Drug Dose 73.7 ml/min Estimated GFR () 81.8 Estimated GFR (Non- 70.6 BUN/Creatinine Ratio 18.4 10-20 Random Glucose 97 70-99 mg/dl Calcium Level 8.6 8.5-10.1 mg/dl Magnesium Level 2.3 1.8-2.4 mg/dl Total Bilirubin 0.5 0.2-1 mg/dl Direct Bilirubin 0.1 0-0.2 mg/dl Aspartate Amino Transf (AST/SGOT) 43 15-37 U/L Alanine Aminotransferase (ALT/SGPT) 42 12-78 U/L Alkaline Phosphatase 102 45-117 U/L Total Creatine Kinase 328 39-308 U/L Creatine Kinase MB 1.8 0.5-3.6 ng/ml Creatine Kinase MB Ratio 0.5 0-3.0 Troponin I < 0.015 0-0.045 ng/ml Total Protein 7.7 6.4-8.2 gm/dl Albumin 4.0 3.4-5.0 gm/dl Lipase 137 73-393 U/L Thyroid Stimulating Hormone (TSH) 1.830 0.300-4.500 uIu/ml Acetaminophen Level < 2 10-30 ug/ml Venous Blood pH 7.42 7.36-7.41 Venous Blood Partial Pressure CO2 40 38.0-50.0 mmHg Venous Blood Partial Pressure O2 33 mmHg Venous Blood HCO3 25 mmol/L Venous Blood Oxygen Saturation 62.9 % Venous Blood Base Excess 1.0 mmol/L Carboxyhemoglobin 0.0 % THgb Lactic Acid Level 1.1 0.4-2.0 mmol/L Ethyl Alcohol mg/dL < 3.0 0-3 mg/dl Influenza Type A (RT-PCR) POS for Influ A NEG Influenza Type B (RT-PCR) Neg for Influ B NEG Urine Color YELLOW Urine Appearance CLEAR CLEAR Urine pH 5.5 4.5-7.5 Urine Specific [place] >= 1.030 1.000-1.030 Urine Protein TRACE NEG Urine Glucose (UA) NEG NEG Urine Ketones 1+ NEG Urine Occult Blood TRACE NEG Urine Nitrite NEG NEG Urine Bilirubin NEG NEG Urine Urobilinogen NEG NEG Urine Leukocyte Esterase NEG NEG Urine RBC 0-4 0-4 /hpf Urine WBC 0 0-5 /hpf Urine Epithelial Cells 0-5 0-5 /lpf Urine Bacteria NEG NEG Urine Mucus PRESENT NONE PRSENT Urine Opiates Screen NEG NEG Urine Methadone, Qualitative NEG NEG Urine Barbiturates NEG NEG Urine Phencyclidine (PCP) Level NEG NEG Ur Amphetamine/Methamphetamine NEG NEG MDMA (Ecstasy) Screen NEG NEG Urine Benzodiazepines Screen NEG NEG Urine Cocaine Metabolite NEG NEG Urine Marijuana (THC) NEG NEG Diagnostic Radiology CHEST XRAY SINGLE VIEW CHEST CLINICAL HISTORY: Fever. Sepsis. FINDINGS: An AP, portable, upright chest radiograph is compared to study dated 08/21/2015. Correlation is made with chest CT dated 01/18/2010. The examination is degraded by portable technique and patient rotation. The cardiomediastinal silhouette is unremarkable. The lungs appear hyperinflated, likely due to to good inspiratory result. The lungs and pleural spaces are clear. No pneumothorax is seen. The bony thorax is grossly intact. IMPRESSION: No acute cardiopulmonary abnormality. Electronically signed by: Erich Lazaro M.D. 12/31/2016 8:47 PM Dictated Date/Time: 12/31/2016 8:[address] SCAN OF THE BRAIN WITHOUT IV CONTRAST CLINICAL HISTORY: Change in mental status. COMPARISON STUDY: CT of the brain dated 06/24/2007. TECHNIQUE: Unenhanced axial CT scan of the brain is performed from the vertex to the skull base. Automated dose control exposure was utilized. CT DOSE: 537.48 mGy.cm FINDINGS: Brain parenchyma: The brain parenchyma is normal in appearance. There is no hemorrhage, mass effect, or evidence of acute territorial ischemia by CT criteria. Pruett-white matter is preserved. No extra-axial fluid collection is seen. Ventricles, sulci, cisterns: Normal in configuration. Intracranial vasculature: The visualized intracranial vasculature at the skull base is normal in appearance. Calvarium: Unremarkable. Sinuses and mastoids: There is trace mucosal thickening within the ethmoid sinuses. The remaining visualized paranasal sinuses are clear. The mastoid air cells are well pneumatized. Orbits: The bony orbits are grossly intact. IMPRESSION: No acute intracranial abnormality. Impression Assessment and Plan SYNCOPE : not sure of the etiology no neurological deficit pt was found unresponsive in [place] Carboxyhemoglobin -negative no evidence of hypoxia or respiratory y compromise D Dimer negative CT head negative for CVA possible syncope due to dehydration /Influenza A ? IV fluid ordered , check orthostatic vitals rule out cardiac arrhythmia/ACS Observation in Telemetry serial cardiac markers ECHO to asses LV function /valvular pathology Carotid Doppler r/O carotid stenosis MILD ELEVATION OF CPK possible due to fall IV fluids follow serial level INFLUENZA A IV fluid , supportive care started on Tamiflu 75 mg PO BID X 5 days Droplet precaution EKG CHANGED FULL CODE DVT PROPHYLAXIS : low risk active at baseline SCD and teds ambulate DISPOSITION : Discharge home when medically stable Medicine follow up with Dr Araujo at [facility] Level of Care Med/Surg Advanced Directives Existing Living Will: No Existing Power of Turbine Mechanic: No Resuscitation Status FULL RESUSCITATION VTE Prophylaxis VTE Risk Assessment Done? Y/N: Yes Risk Level: Moderate Given or contraindicated: T.E.D. Stockings, SCD's Additional Copies To Yanelis Araujo M.D. (MEDICAL) <Electronically signed by Seullen Carlson MD> Physical Exam (per Admitting): General Appearance: no apparent distress Head: normocephalic, atraumatic Neck: no carotid bruits, trachea midline Respiratory/Chest: chest non-tender, lungs clear, normal breath sounds Cardiovascular: regular rate, rhythm, no edema, no JVD Abdomen/GI: non tender, soft Extremities/Musculoskelatal: normal inspection, no calf tenderness, normal capillary refill, no pedal edema Neurologic/Psych: alert, normal mood/affect, oriented x 3 Skin: normal color, warm/dry, no rash Lymphatic: no adenopathy Hospital Course SYNCOPE : -pt was found unresponsive in [place] -AAOX3 in ER -Carboxyhemoglobin -negative ,Tox screen negative,No hypoxia -Likely secondary to dehydration complicated by Flue -CT head negative for CVA -IV fluid ordered , check orthostatic vitals -doubt any cardiac arrhythmia/ACS -serial cardiac markers -negative for any ACS -ECHO :: * The left ventricle is normal in size. * Left ventricular systolic function is normal. * Ejection Fraction = 65-70%. * The left ventricular wall motion is normal. * The right ventricular systolic function is normal. * The left atrial size is normal. * Right atrial size is normal. * No significant valvular pathology. -Carotid Doppler :No evidence of a hemodynamically significant stenosis -Appreciate cardiology input -Likely to be discharged today Bradyarrhythmia -Significant ~35 -No symptoms -Chronic in nature -Will get OP Holter INFLUENZA- A IV fluid , supportive care started on Tamiflu 75 mg PO BID X 5 days Droplet precaution No acute respiratory symptoms Check CXR to R/O any Pneumonia MILD ELEVATION OF CPK possible due to fall IV fluids follow serial level -trending down Remains tsable FULL CODE DVT PROPHYLAXIS : low risk active at baseline SCD and teds ambulate DISPOSITION : Discharge home when medically stable Medicine follow up with Dr Araujo at [facility] Discharge today Total time spent on discharge = 35 minutes This includes examination of the patient, discharge planning, medication reconciliation, and communication with other providers. Discharge Instructions Admission Reason for Admission: Syncope Discharge Discharge Diagnosis / Problem: Syncope -Go aparent cause identified,Flu Discharge Goals Goal(s): Prevent Disease Progression Activity Recommendations Activity Limitations: resume your previous activity . Instructions / Follow-Up Instructions / Follow-Up DR Araujo on 01/06/17 at 12:10 PM.Cardiology will call with instruction Current Hospital Diet Patient's current hospital diet: AHA Diet (Heart Healthy) Discharge Diet Recommended Diet: AHA Diet (Heart Healthy) Pending Studies Studies pending at discharge: no Laboratory Results Lipid Panel Test 01/01/17 06:00 Range/Units Triglycerides Level 40 0-150 mg/dl Cholesterol Level 113 0-200 mg/dl HDL Cholesterol 42 mg/dl Cholesterol/HDL Ratio 2.7 LDL Cholesterol, Calculated 63 mg/dl Medical Emergencies . Who to Call and When: Medical Emergencies: If at any time you feel your situation is an emergency, please call 911 immediately. . Non-Emergent Contact Non-Emergency issues call your: Primary Care Provider . Past History Medical & Surgical History: (1) Syncope (2) Abdominal pain . "Provider Documentation" section prepared by Ness Salmon. VTE Core Measure Inpt VTE Proph given/why not?: Debbie Conklin, [facility] <Electronically signed by Ness Salmon M.D.> Signed: 01/02/17 0626 Additional Copies To Yanelis Araujo M.D. (MEDICAL)
--- NOTE | 2017-01-03 09:33 | DIAGNOSTIC IMAGING REPORT ---
CHEST 2 VIEWS ROUTINE CLINICAL HISTORY: Bronchitis/Pneumonia dyspnea COMPARISON STUDY: No previous studies for comparison. Findings: Small parenchymal infiltrate medial aspect left lower lobe. Lungs otherwise are clear. Diaphragms smooth. IMPRESSION:: Small parenchymal infiltrate medial aspect left lower lobe Electronically signed by: Vidal Cano M.D. 01/03/2017 9:31 AM Dictated Date/Time: 01/02/2017 11:10 AM
== END 2017-01-02 16:50 | disposition home or self-care (01) ==
LOC: ENRESERVDT → ENRESERVTM → EDBD 20:22 → C.EDB 20:23 → UNDOADMOB 23:36 → C.2E 23:36
PROVIDERS: ADMIT Hospitalist; ATTEND Internal Medicine
DX: R55 Syncope and collapse (principal); J11.1 Influenza due to unidentified influenza virus with other respiratory manifestations; R00.1 Bradycardia, unspecified; W17.89XA Other fall from one level to another, initial encounter; E86.0 Dehydration; D61.818 Other pancytopenia; Z83.3 Family history of diabetes mellitus; Z82.49 Family history of ischemic heart disease and other diseases of the circulatory system; Z83.6 Family history of other diseases of the respiratory system; Z79.82 Long term (current) use of aspirin

== ENCOUNTER → 2018-01-24 | Outpatient (CLI) | payer BC ==
[~2018-01-24] MED LIST changes: +ASPEC81 PO; +ASPI-390 PO; -DICL-201 PO; +PANT1TAB3 PO; +TMF75 PO; +TRAM-10 PO
== END | disposition home or self-care (01) ==
LOC: C.PATHSPEC 16:44
PROVIDERS: ATTEND Urology
DX: Z87.448 Personal history of other diseases of urinary system (principal)

== ENCOUNTER → 2018-02-16 | Outpatient (CLI) | payer BC ==
[~2018-02-16] MED LIST changes: +OPTIRAY 320 IV PRN
--- NOTE | 2018-02-16 11:18 | DIAGNOSTIC IMAGING REPORT ---
(TESTICULAR) SCROTUM-CONT HISTORY: Hematuria Z87.448 History of [id number] COMPARISON: None. FINDINGS: Right testis: Maximum dimension 4.2 cm. Normal vascular flow. Left testis: 3.9 cm maximum linear dimension. Normal vascular flow. Large left hydrocele IMPRESSION: 1. Normal testis. 2. Large left hydrocele measuring 6 x 5 x 3 cm. The above report was generated using voice recognition software. It may contain grammatical, syntax or spelling errors. Electronically signed by: Vidal Cano M.D. 02/16/2018 11:17 AM Dictated Date/Time: 02/16/2018 11:10 AM
--- NOTE | 2018-02-16 13:07 | DIAGNOSTIC IMAGING REPORT ---
CT ABD/PELVIS IV AND ORAL CONT CLINICAL HISTORY: Z87.448 History of hematuria [facility] Ref# [id number] COMPARISON STUDY: 07/31/2015 TECHNIQUE: Following the IV administration of 118 mL of Optiray-320, CT scan of the abdomen and pelvis was performed from the lung bases to the proximal femurs. Images are reviewed in the axial, sagittal, and coronal planes. IV contrast was administered without complication. A dose lowering technique was utilized adhering to the principles of ALARA. CT DOSE: 317.20 mGy.cm FINDINGS: Lower chest: The heart is normal in size and configuration, without pericardial effusion. The lung bases and pleural spaces are clear. Liver: The contrast-enhanced liver is normal in size, contour, and attenuation. There is no intrahepatic biliary ductal dilatation. The hepatic veins and portal veins are patent. Gallbladder: Contracted. Spleen: Top normal in size measuring 12.5 cm. Pancreas: Unremarkable. Adrenal glands: Unremarkable. Kidneys: There is symmetric renal cortical enhancement. The kidneys are normal in size without hydronephrosis. No renal masses are visualized. Bowel: There are no transition zones indicate bowel obstruction. The appendix appears normal. There is no acute diverticulitis. Peritoneum: There is no intraperitoneal free air or abdominal ascites. Vasculature: The abdominal aorta is normal in course and caliber. Adenopathy: None. Pelvic viscera: There is a left-sided hydrocele. Skeletal structures: There is stable sclerosis the right symphysis pubis. No destructive lesions are visualized. IMPRESSION: 1. No renal, ureteral, or bladder calculi identified 2. No renal masses identified 3. No evidence of bowel obstruction. No evidence of free air 4. No acute inflammatory changes 5. Left-sided scrotal hydrocele Electronically signed by: Richie Reyna M.D. 02/16/2018 1:05 PM Dictated Date/Time: 02/16/2018 1:01 PM
== END | disposition home or self-care (01) ==
LOC: C.CTS 10:07
PROVIDERS: ATTEND Urology
DX: Z87.448 Personal history of other diseases of urinary system (principal); N43.3 Hydrocele, unspecified